=== PATIENT | female | born 1945 | race Caucasian/White ===

== ENCOUNTER → 2019-03-27 | Day surgery (SDC) | payer MEDICARE, OTHER ==
[2019-03-24 11:11] LABS: BASOPHILS % 0.6 % (0.0-1.0); EOSINOPHILS # (AUTO) 0.1 (0.0-0.4); HEMATOCRIT 36.9 % (34.2-44.1); HEMOGLOBIN 12.5 g/dL (12.0-16.0); LYMPHOCYTES # (AUTO) 1.6 (1.0-3.2); LYMPHOCYTES % 29.9 % (18.0-39.1); MEAN CORPUSCULAR HEMOGLOBIN 30.2 pg (28-32); MEAN CORPUSCULAR HGB CONC 33.9 g/dL (31-35); MEAN CORPUSCULAR VOLUME 89.1 fL (81-99); MONOCYTES # (AUTO) 0.5 (0.2-0.8); MONOCYTES % 9.9 % (4.4-11.3); NEUTROPHILS # (AUTO) 3.1 (2.1-6.9); NEUTROPHILS % 57.4 % (38.7-80.0); PLATELET COUNT 171 x10e3/uL (140-360); RED BLOOD COUNT 4.14 x10e6/uL (3.6-5.1); RED CELL DISTRIBUTION WIDTH 14.1 % (11.7-14.4)
[~2019-03-27] MED LIST: ASPIR 8181 MG PO; CALAN SR180 MG PO; CALCIUM 600 +1 EAC2 PO; CLARITIN-D 241 EACH PO; CRESTOR10 MG PO; DICYCLOMINE HCL20 MG PO; FENTANYL CITRATE/PF 100MCG/2 ML INJ ONE; LIDOCAINE HCL 2% LOCAL INJ 5 ML SDV VIAL INJ ONE; LINZESS PO; MIDAZOLAM HCL 2 MG/2 ML VIAL ONE; MULTI-VITAMIN1 EACH PO; NITRO-DUR1 EAC1 TD; OASIS TEARS OP; PROPOFOL IV EMULSION 10 MG/ML 50 ML VIAL ONE; RANITIDINE HCL300 M1 PO; ULTRAM50 MG PO; VITAMIN D31000 UNIT PEG
--- OUTSIDE RECORDS SUMMARY | 2019-03-27 11:10 | XMS REPORT | Clinical Summary ---
Author Author [facility] Organization [facility] Address Unknown Phone Unavailable Care Team Providers Care Technical Publications Manager Name Role Phone Asked, No Pcp PCP Unavailable Allergies Comments Active Allergy Reactions Severity Noted Date "my arm at the injection site got swollen, and turned black and blue " Penicillins Swelling High 07/17/2016 Medications End Date Status Medication Sig Dispensed Refills Start Date Active verapamil sustained Take 180 mg 0 release (CALAN-SR) 180 MG by mouth 6 SR tablet every morning. Take the morning of surgery Active fenofibrate (LOFIBRA) 160 Take 160 mg 0 MG tablet by mouth every morning. Take the morning of surgery, takes 1/2 tab of the 160mg Active esomeprazole (NexIUM) 40 Take 40 mg by 0 MG capsule mouth daily before breakfast. Take the morning of surgery Active traMADol (ULTRAM) 50 mg Take 50 mg by 0 tablet mouth 2 (two) times a day. Take the morning of surgery Active nitroglycerin (NITRODUR) Place 1 patch 0 0.1 mg/hr on the skin every morning. Use the morning of surgery Active CHOLECALCIFEROL, VITAMIN Take 1 tablet 0 D3, (VITAMIN D3 ORAL) by mouth daily. Stopped 9.6 Active CALCIUM ORAL Take by mouth 0 daily. Stopped 9/6 Active aspirin (ECOTRIN) 81 MG Take 81 mg by 0 enteric coated tablet mouth daily. Stopped 9/6 Active cetirizine (ZyrTEC) 10 MG Take 10 mg by 0 tablet mouth as needed for allergies. Active dicyclomine (BENTYL) 20 Take 20 mg by 0 mg tablet mouth as needed. Active fluticasone (FLONASE) 50 2 sprays into 0 mcg/actuation nasal spray each nostril as needed for rhinitis. Active CRANBERRY FRUIT EXTRACT Take by 0 (CRANBERRY EXTRACT ORAL) mouth. Stopped 9/6 Active Problems No known active problems Family History Medical History Relation Name Comments Heart disease Father Stroke Father Heart disease Mother Kidney disease Mother Lupus Mother Relation Name Status Comments Father Mother Social History Date Tobacco Use Types Packs/Day Years Used Never Smoker Smokeless Tobacco: Never Used Tobacco Cessation: Counseling Given: No Alcohol Use Drinks/Week oz/Week Comments Yes daily wine Sex Assigned at Date Recorded Not on file Industry Job Start Date Occupation Not on file Not on file Not on file Travel End Travel History Travel Start No recent travel history available. Last Filed Vital Signs Not on file Plan of Treatment Not on file Results Not on fileafter 03/26/2018 Insurance Type Payer Benefit Subscriber ID Effective Phone Address Plan / Dates Group Medicare MEDICARE MEDICARE xxxxxxxxxx 2009- [place], PART A AND Present [place] Advance Directives Patient has advance care planning documents on file. For more information, jeyson funez contact: Brian Avilez [address] [place] [address]
--- OUTSIDE RECORDS SUMMARY | 2019-03-27 11:10 | XMS REPORT | Summary of Care ---
Author Organization Unknown Address Unknown Phone Unavailable Encounter HQ Radhantr_micheal(FIN) [id number] Date(s): 03/25/14 - 03/25/14 [facility] [address] Discharge Disposition: Home Physician Attending: Ramin Macias MD Physician_Referring: Ramin Macias MD Reason for Visit AAA Problem List Condition Effective Dates Status Health Status Informant AAA - Abdominal Active aortic aneurysm(Confirmed) Chest Active pain(Confirmed) GERD - Active Gastro-esophageal reflux disease(Confirmed) HTN - Active Hypertension(Confirm ed) Hyperlipidemia(Confi Active rmed) Osteoporosis(Confirm Active ed) Allergies, Adverse Reactions, Alerts Substance Reaction Severity Status penicillin Active Medications No data available for this section Medications Administered During Your Visit No data available for this section Immunizations Vaccine Date Refusal Reason pneumococcal 23-valent vaccine1 03/07/11 1Result Comment: GIVEN LATE PT REQUESTS
--- OUTSIDE RECORDS SUMMARY | 2019-03-27 11:10 | XMS REPORT | Summary of Care ---
Author Author [facility] Organization [facility] Address Unknown Phone Unavailable Encounter HQ Negrita(DMITRIY) [id number] Date(s): 07/21/18 - 07/21/18 [facility] [address] [place] [address]- Encounter Diagnosis Pain in right knee (Final) - 09/28/18 Effusion, right knee (Final) - Synovial cyst of popliteal space [Kaye], right knee (Final) - Other chondrocalcinosis, right knee (Final) - Unilateral primary osteoarthritis, right knee (Final) - Varus deformity, not elsewhere classified, right knee (Final) - Discharge Disposition: Home or Self Care Attending Physician: Denise Fox MD Referring Physician: Denise Fox MD Vital Signs No data available for this section Problem List Condition Effective Dates Status Health Status Informant AAA - Abdominal Active aortic aneurysm(Confirmed) Bladder infection, Resolved acute(Confirmed) Bronchitis(Confirmed Resolved ) Chest Active pain(Confirmed) Constipation(Confirm Resolved ed) DJD (degenerative Resolved joint disease)(Confirmed) Gastric Resolved ulcer(Confirmed) GERD Resolved (gastroesophageal reflux disease)(Confirmed) GERD - Active Gastro-esophageal reflux disease(Confirmed) HTN Active (hypertension)(Confi rmed) HTN - Active Hypertension(Confirm ed) Hyperlipidemia(Confi Active rmed) IBS (irritable bowel Resolved syndrome)(Confirmed) OA Resolved (osteoarthritis)(Con firmed) Osteoporosis(Confirm Active ed) Skin cancer, basal Resolved cell(Confirmed) Thoracic aortic Resolved aneurysm(Confirmed) Allergies, Adverse Reactions, Alerts Substance Reaction Severity Status penicillin Active Medications No data available for this section Results No data available for this section Immunizations Given and Recorded Vaccine Date Status Refusal Reason pneumococcal 23-valent vaccine1 03/07/11 Given 1Result Comment: GIVEN LATE PT REQUESTS Procedures Procedure Date Related Diagnosis Body Site Status Appendectomy Completed Bilateral tubal ligation Completed Cholecystectomy Completed Closed reduction of dislocation of nasal Completed septum Hysterectomy Completed Laminectomy Completed Tonsillectomy and adenoidectomy Completed Social History Social History Type Response Substance Abuse Use: None. Exercise Exercise type: Walking. Employment/School 1 Alcohol Current, Type Wine. Frequency: Daily. Previous treatment: None. Alcohol use interferes with work or home: No. Drinks more than intended: No. Others hurt by drinking: No. Ready to change: No. Household alcohol concerns: No. 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
--- OUTSIDE RECORDS SUMMARY | 2019-03-27 11:10 | XMS REPORT | Continuity of Care Document ---
Author Author Catalino nicholas [facility] Interface Address Unknown Phone Unavailable Problems Problem Status Onset Date Classification Date Reported Comments Source Pain in right knee 09/28/2018 02/07/2019 [facility] M25.561 Active 07/17/2018 [facility] DX: AAA Active 07/08/2017 [facility] CHEST PAIN Active 02/09/2016 [facility] AAA Active 03/10/2015 [facility] AAA - Abdominal aortic aneurysm Active Problem 02/07/2019 [facility] [place] Chest pain Active Problem 02/07/2019 [facility], [facility] [place] GERD - Gastro-esophageal reflux disease Active Problem 02/07/2019 [facility], [facility] [place] HTN - Hypertension Active Problem 02/07/2019 [facility], [facility] [place] Hyperlipidemia Active Problem 02/07/2019 [facility], [facility] [place] Osteoporosis Active Problem 02/07/2019 [facility], [facility] [place] Bladder infection, acute Resolved Problem 02/07/2019 [facility], [facility] [place],[facility] Bronchitis Resolved Problem 02/07/2019 [facility], [facility] [place],[facility] Constipation Resolved Problem 02/07/2019 [facility], [facility] [place],[facility] DJD (<span ID="[id number]">Confirmed</span>) Resolved Problem 02/07/2019 [facility], [facility] [place],[facility] Gastric ulcer Resolved Problem 02/07/2019 [facility], [facility] [place],[facility] GERD (<span ID="[id number]">Confirmed</span>) Resolved Problem 02/07/2019 [facility], [facility] [place],[facility] HTN (<span ID="[id number]">Confirmed</span>) Active Problem 02/07/2019 [facility], [facility] [place],[facility] IBS (<span ID="[id number]">Confirmed</span>) Resolved Problem 02/07/2019 [facility], [facility] [place],[facility] OA (<span ID="[id number]">Confirmed</span>) Resolved Problem 02/07/2019 [facility] [place] Skin cancer, basal cell Resolved Problem 02/07/2019 [facility] [place] Thoracic aortic aneurysm Resolved Problem 02/07/2019 [facility] [address] [facility] Effusion, right knee 02/07/2019 [facility] Synovial cyst of popliteal space [Kaye], right knee 02/07/2019 [facility] Other chondrocalcinosis, right knee 02/07/2019 [facility] Unilateral primary osteoarthritis, right knee 02/07/2019 [facility] Varus deformity, not elsewhere classified, right knee 02/07/2019 [facility] Final: Weakness 09/17/2016 [facility] Final: Unspecified abnormalities of gait and mobility 09/17/2016 [facility] ABDOM AORTIC ANEURYSM Active [facility] LUMBAGO Active [facility] LEFT HIP/KNEE Active [facility] JT STIFFNESS NEC-MULT JT Active [facility] DIFFICULTY IN WALKING Active [facility] MUSCLE WEAKNESS-GENERAL Active [facility] CHEST PAIN, UNSPECIFIED Active [facility] LT ANKLE/FOOT Active [facility] ABDOMINAL AORTIC ANEURYSM, WITHOUT RUPTU Active [facility] LT ANKLE PAIN Active [facility] PAIN IN LEFT ANKLE AND JOINTS OF LEFT FO Active [facility] WEAKNESS Active [facility] UNSPECIFIED ABNORMALITIES OF GAIT AND MO Active [facility] PAIN IN RIGHT KNEE Active [facility] Medications Medication Details Route Status Patient Instructions Ordering Provider Order Date Source Omnipaque 300 100 mL, Route: IV, Drug Form: SOLN, ONCE, Start date: 07/12/17 8:13:00 CDT, Stop date: 07/12/17 8:13:00 CDTNotes: (Same as:Omnipaque 300). WASTE: F/P - Black; E - [facility] Inactive 07/12/2017 [facility] Lipitor 5 mg, 0.5 tab, Route: PO, Drug form: TAB, Bedtime, Dosing Weight 66.955, kg, Start date: 02/10/16 21:00:00 CDT, Duration: 30 day, Stop date: 03/10/16 21:00:00 CDTNotes: (Same As: Lipitor) No Longer Active 02/11/2016 [facility] Protonix 40 mg, 1 tab, Route: PO, Drug form: ECTAB, Before Dinner, Dosing Weight 66.955, kg, Start date: 02/10/16 16:30:00 CDT, Duration: 30 day, Stop date: 03/10/16 16:30:00 CDTNotes: Tablet should not be chewed or crushed. (Same as: Protonix) No Longer Active 02/10/2016 [facility] Fenofibrate 72.5 mg, 0.5 tab, Route: PO, Drug form: TAB, Daily, Dosing Weight 66.955, kg, Start date: 02/10/16 11:30:00 CDT, Duration: 30 day, Stop date: 03/11/16 9:00:00 CDTNotes: (Same as: Tricor) No Longer Active 02/10/2016 [facility] Fenofibrate 160 MG Oral Tablet 1/2 tablet, PO, Daily, 0 Refill(s) On Hold 02/10/2016 [facility] Lipitor 5 mg, PO, Bedtime, 0 Refill(s) Inactive 02/10/2016 [facility] Dicyclomine 20 mg, PO, TID, PRN Pain Score 1-5, 0 Refill(s) On Hold 02/10/2016 [facility] Verapamil 180 mg, PO, Daily, 0 Refill(s) On Hold 02/10/2016 [facility] Aspirin 325 MG Enteric Coated Tablet 325 mg, 1 tab, Route: PO, Drug form: ECTAB, Daily, Dosing Weight 66.955, kg, Start date: 02/10/16 9:00:00 CDT, Duration: 30 day, Stop date: 03/10/16 9:00:00 CDTNotes: (Do Not Crush) Do not crush or chew. No Longer Active 02/10/2016 [facility] Verapamil 180 mg, 1 tab, Route: PO, Drug form: ERTAB, Daily, Dosing Weight 66.955, kg, Start date: 02/10/16 9:00:00 CDT, Duration: 30 day, Stop date: 03/10/16 9:00:00 CDTNotes: Do not crush or chew. (Same As: Calan SR, Isoptin SR) "Avoid grapefruit and grapefruit juice" No Longer Active 02/10/2016 [facility] Bystolic 5 mg, 2 tab, Route: PO, Drug form: TAB, Daily, Dosing Weight 66.955, kg, Start date: 02/10/16 9:00:00 CDT, Duration: 30 day, Stop date: 03/10/16 9:00:00 CDTNotes: Same as: Bystolic Inactive 02/10/2016 [facility] Levsin 0.125 mg, 1 tab, Route: PO, Drug form: TAB, BID, Dosing Weight 66.955, kg, Start date: 02/10/16 9:00:00 CDT, Duration: 30 day, Stop date: 03/10/16 17:00:00 CDT Inactive 02/10/2016 [facility] Flonase 0.05 mg/inh nasal spray 1 spray, Route: NASAL, Drug Form: SPRY, Dosing Weight 66.955, kg, BID, Start date: 02/10/16 9:00:00 CDT, Duration: 30 day, Stop date: 03/10/16 21:00:00 CDTNotes: (Same as: Flonase) No Longer Active 02/10/2016 [facility] Celebrex 200 mg, 1 cap, Route: PO, Drug form: CAP, Daily, Dosing Weight 66.955, kg, Start date: 02/10/16 9:00:00 CDT, Duration: 30 day, Stop date: 03/10/16 9:00:00 CDTNotes: NSAID. Please check indication. Not for seizure. (Same As: CeleBREX) Inactive 02/10/2016 [facility] tramadol hydrochloride 50 MG Oral Tablet 50 mg, 1 tab, Route: PO, Drug form: TAB, TID, Dosing Weight 66.955, kg, PRN Pain Score 4-6, Start date: 02/10/16 7:41:00 CDT, Duration: 30 day, Stop date: 03/11/16 7:40:00 CDTNotes: Not to exceed 400mg/day. (Same As: Ultram) No Longer Active 02/10/2016 [facility] Nitroglycerin 0.4 MG Sublingual Tablet 0.4 mg, 1 tab, Route: SL, Drug form: TAB, Q5Min, Dosing Weight 66.955, kg, PRN Chest Pain, Start date: 02/10/16 7:41:00 CDT, Duration: 30 day, Stop date: 03/11/16 7:40:00 CDTNotes: (Same as:Nitroquick, Nitrostat) "Do Not Crush" Sublingual tablet No Longer Active 02/10/2016 [facility] Robaxin 500 mg, 1 tab, Route: PO, Drug form: TAB, Q6H, Dosing Weight 66.955, kg, PRN Spasm, Start date: 02/10/16 7:41:00 CDT, Duration: 30 day, Stop date: 03/11/16 7:40:00 CDTNotes: (Same as:Robaxin) No Longer Active 02/10/2016 [facility] Acetaminophen 650 mg, 2 tab, Route: PO, Drug form: TAB, Q4H, Dosing Weight 63.636, kg, PRN Pain 1-3/Temp > 100.4 F, Start date: 02/09/16 23:40:00 CDT, Duration: 30 day, Stop date: 03/10/16 23:39:00 CDTNotes: Do not exceed 4 gm/day. (Same as: Tylenol) No Longer Active 02/10/2016 [facility] Ondansetron 4 mg, 2 mL, Route: IVP, Drug form: INJ, Q6H, Dosing Weight 63.636, kg, PRN Nausea & Vomiting, Start date: 02/09/16 23:40:00 CDT, Duration: 30 day, Stop date: 03/10/16 23:39:00 CDTNotes: (Same as: Nonafrtri) MEDICATION WASTE Product Size: 4 mg Product Wasted: ___ mg No Longer Active 02/10/2016 [facility] Docusate 100 mg, 1 cap, Route: PO, Drug form: CAP, BID, Dosing Weight 63.636, kg, PRN Constipation, Start date: 02/09/16 23:40:00 CDT, Duration: 30 day, Stop date: 03/10/16 23:39:00 CDTNotes: (Same as: Colace) (Do Not Crush) No Longer Active 02/10/2016 [facility] Morphine 2 mg, 1 mL, Route: IVP, Drug form: INJ, Q4H, Dosing Weight 63.636, kg, PRN Pain Score 7-10, Start date: 02/09/16 23:40:00 CDT, Duration: 30 day, Stop date: 03/10/16 23:39:00 CDTNotes: (Same as:MORPhine Sulfate) No Longer Active 02/10/2016 [facility] Reglan 5 mg, 1 mL, Route: IVP, Drug form: INJ, ONCE, Dosing Weight 63.636, kg, Priority: STAT, Start date: 02/09/16 21:24:00 CDT, Stop date: 02/09/16 21:24:00 CDTNotes: (Same as: Reglan) Inactive 02/10/2016 [facility] Zofran 4 mg, Route: IVP, Drug form: INJ, ONCE, Dosing Weight 63.636, kg, Priority: STAT, Start date: 02/09/16 19:54:00 CDT, Stop date: 02/09/16 19:54:00 CDT Inactive 02/10/2016 [facility] Aspirin 81 MG Chewable Tablet 324 mg, 4 tab, Route: CHEW, Drug form: CHEWTAB, ONCE, Dosing Weight 63.636, kg, Priority: STAT, Start date: 02/09/16 19:12:00 CDT, Stop date: 02/09/16 19:12:00 CDTNotes: Take with food. Inactive 02/10/2016 [facility] Saline Flush 0.9% 10 mL, Route: IVP, Drug Form: INJ, Dosing Weight 63.636, kg, PRN, PRN Line Flush, Start date: 02/09/16 18:33:00 CDT, Duration: 30 day, Stop date: 03/10/16 18:32:00 CDTNotes: Same as: BD Posiflush Sterile No Longer Active 02/09/2016 [facility] Allergies, Adverse Reactions, Alerts Substance Category Reaction Severity Reaction type Status Date Reported Comments Source penicillin Assertion Drug allergy Active [facility] Immunizations Immunization Date Given Site Status Last Updated Comments Source pneumococcal 23-valent vaccine<sup>1</sup> 03/07/2011 Right deltoid completed [place] Result Comment: GIVEN LATE PT REQUESTS [facility], [facility], [facility] [place] Results Order Name Results Value Reference Range Date Interpretation Comments Source Knee wo contrast CT Knee wo contrast CT CT RIGHT KNEE WITHOUT CONTRAST WITH SAGITTAL AND CORONAL REFORMATTED IMAGES HISTORY: M25.561 Pain in right knee; 72-year-old female reports right knee pain and bruising after right knee injury during fall 2 weeks ago TECHNIQUE: IV CONTRAST: No. GI CONTRAST: No. CT imaging performed at this location utilizes radiation dose optimization techniques which include one or more of the following: -Automated exposure control -Adjustment of the mA and/or kV according to patient size -Use of iterative reconstruction technique CT Radiation Dose DLP 342 mGy-cm COMPARISON: None available. FINDINGS: No fracture, dislocation, subluxation, or aggressive osseous lesion. Moderate to severe lateral compartment degenerative arthrosis demonstrating near [id number] joint space narrowing with degenerative subchondral sclerosis and moderate osteophytosis. There is mild genu valgus deformity. No significant medial compartment joint space narrowing. Mild lateral patellofemoral arthritic joint space narrowing. Mild medial and patellofemoral compartment degenerative osteophytosis. Meniscal chondrocalcinosis is noted. Small knee joint effusion is present. A Kaye's cyst is present measuring 1.8 x 2.9 x 4.3 cm. No soft tissue hematoma, fluid collection, or mass. IMPRESSION: 1. No fracture or acute abnormality. 2. Moderate to severe lateral compartment degenerative arthrosis with mild genu valgus. 3. Mild/moderate tricompartmental degenerative osteophytosis, meniscal chondrocalcinosis, small joint effusion, and Kaye's cyst. SL: [id number] 07/21/2018 - - Read by: Chang Banks MD Dictated Date/time: 07/21/18 10:03 Electronically Signed by: Chang Banks MD 07/21/18 10:09 FINAL REPORT [facility] CHEM PANEL eGFR 74 mL/min/1.73m2 07/12/2017 Result Comment: The eGFR is calculated using the CKD-EPI formula. In most young, healthy individuals the eGFR will be >90 mL/min/1.73m2. The eGFR declines with age. An eGFR of 60-89 may be normal in some populations, particularly the elderly, for whom the CKD-EPI formula has not been extensively validated. Use of the eGFR is not recommended in the following populations: Individuals with unstable creatinine concentrations, including patients and those with serious co-morbid conditions. Patients with extremes in muscle mass or diet. The data above are obtained from the National Kidney Disease Education Program (NKDEP) which additionally recommends that when the eGFR is used in patients with extremes of body mass index for purposes of drug dosing, the eGFR should be multiplied by the estimated BMI. [facility] CHEM PANEL POC Creatinine 0.8 mg/dL 0.5 - 1.4 07/12/2017 [facility] Abdomen w IV contrast CT Abdomen w IV contrast CT Abdomen w IV contrast CT TECHNIQUE: Contiguous transaxial images of the abdomen were performed from the lung bases to the pelvic brim with IV contrast. CLINICAL HX: ct dlp 583.5 mGycm - I71.4 Abdominal aortic aneurysm, without rupture; COMPARISON: None CT ABDOMEN: Lower Chest: The lung bases are clear. GI Tract: Bowel gas pattern is unremarkable. No evidence to suggest small or large bowel obstruction. There is no evidence for free fluid or free air in the abdomen. Tract and retroperitoneum: Small interpolar cyst, left kidney, unchanged. The kidneys otherwise demonstrate normal morphology and symmetric excretion. Lymph Nodes: No significant retroperitoneal lymphadenopathy is noted. Abdominal viscera: The spleen, pancreas and both adrenals demonstrate normal morphology. Fatty infiltration of liver. Status post cholecystectomy. Mild intrahepatic and extrahepatic bile duct dilation, unchanged. Vasculature: Minimal atherosclerotic disease infrarenal abdominal aorta. No aneurysm. Bone and Soft tissues: Extensive spondylosis and degenerative disc disease is noted in the lumbar spine. No significant bony abnormality is noted. IMPRESSION: No acute abnormality. No significant interval change from previous study of 03/25/2014. SL: [id number] 07/12/2017 - - Read by: Froilan Villatoro MD Dictated Date/time: 07/12/17 16:17 Electronically Signed by: Froilan Villatoro MD 07/12/17 16:26 FINAL REPORT [facility] Chest w contrast CT Chest w contrast CT Chest w contrast CT CLINICAL HX: ct dlp 224.5 mGycm; 100 cc omni IV \\T\\ 25 cc omni PO - I71.4 Abdominal aortic aneurysm, without rupture. COMPARISON: 03/16/2015 TECHNIQUE: Contiguous transaxial images of the chest were performed with IV contrast. Reformats are available in sagittal and coronal projections. CT CHEST: SUPPORT DEVICES: none LOWER NECK: Low density focus in right lobe of thyroid gland is unchanged.. LUNGS AND AIRWAYS: The lungs and pleural spaces are clear. The trachea and the proximal bronchi are patent. CARDIOVASCULAR: The cardiac size is normal. Aneurysm of the ascending portion of the aorta is stable from previous study. Maximum caliber is 4.6 cm, unchanged from previous CT of 03/16/2015. No evidence for dissection. LYMPH NODES: No significant mediastinal or hilar lymphadenopathy. SOFT TISSUE AND BONES: . No significant bony abnormality is noted. ESOPHAGUS AND UPPER ABDOMEN: The esophagus demonstrates normal morphology. Limited images of the upper abdomen reveal fatty infiltration of liver. IMPRESSION: Stable size and appearance of ascending thoracic aortic aneurysm. No dissection. No significant change in low-density nodule, right lobe of thyroid gland. SL: [id number] 07/12/2017 - - Read by: Froilan Villatoro MD Dictated Date/time: 07/12/17 16:07 Electronically Signed by: Froilan Villatoro MD 07/12/17 16:17 FINAL REPORT [facility] Foot wo contrast MRI Foot wo contrast MRI MRI LEFT FOREFOOT WITHOUT CONTRAST HISTORY: Injury of left foot, 71-year-old female reports dorsal left foot pain for approximately 2 months, no specific injury, painful range of motion COMPARISON: None available. FINDINGS: A skin marker was placed dorsal to the second and third tarsometatarsal joints site of patient's symptoms. There is mild focal bone marrow edema in the proximal metaphysis of the third metatarsal just distal to the tarsometatarsal joint without associated fracture line compatible with osseous stress reaction (long axis series 901 image 14). There is also mild reactive arthropathic degenerative marrow edema within the middle and lateral cuneiforms at the second and third tarsometatarsal joints with trace associated dorsal degenerative spurring. Small degenerative subchondral cyst noted in the dorsal base of the third metatarsal. No other abnormal marrow signal is seen within the forefoot. No soft tissue mass or fluid collection. No tendon abnormality is seen. IMPRESSION: 1. Focal marrow edema in the proximal shaft of the third metatarsal without fracture line compatible with osseous stress reaction. 2. Mild dorsal degenerative spurring and subcortical cystic change at the second and third tarsometatarsal joints with mild associated arthropathic marrow edema. SL: [id number] 09/29/2016 - - Read by: Chang Banks MD Dictated Date/time: 10/01/16 08:01 Electronically Signed by: Chang Banks MD 10/01/16 08:10 FINAL REPORT [facility] [place] CARDIAC ENZYMES CK MB 0.6 ng/mL 0.5 - 3.6 02/10/2016 [facility] CARDIAC ENZYMES Troponin-I null 0.00 - 0.40 02/10/2016 [facility] CARDIAC ENZYMES Total CK 48 unit/L 12 - 191 02/10/2016 [facility] CARDIAC ENZYMES CK MB Index 1.2 0.0 - 2.5 02/10/2016 [facility] CARDIAC ENZYMES CK MB 0.6 ng/mL 0.5 - 3.6 02/10/2016 [facility] CARDIAC ENZYMES Troponin-I null 0.00 - 0.40 02/10/2016 [facility] CARDIAC ENZYMES Total CK 51 unit/L 12 - 191 02/10/2016 [facility] CARDIAC ENZYMES CK MB Index 1.2 0.0 - 2.5 02/10/2016 [facility] CHEM PANEL eGFR 76 mL/min/1.73m2 02/10/2016 Result Comment: The eGFR is calculated using the CKD-EPI formula. In most young, healthy individuals the eGFR will be >90 mL/min/1.73m2. The eGFR declines with age. An eGFR of 60-89 may be normal in some populations, particularly the elderly, for whom the CKD-EPI formula has not been extensively validated. Use of the eGFR is not recommended in the following populations: Individuals with unstable creatinine concentrations, including patients and those with serious co-morbid conditions. Patients with extremes in muscle mass or diet. The data above are obtained from the National Kidney Disease Education Program (NKDEP) which additionally recommends that when the eGFR is used in patients with extremes of body mass index for purposes of drug dosing, the eGFR should be multiplied by the estimated BMI. [facility] CHEM PANEL CO2 28 meq/L 24 - 32 02/10/2016 [facility] CHEM PANEL AGAP 12.0 meq/L 10.0 - 20.0 02/10/2016 [facility] CHEM PANEL Calcium Lvl 9.0 mg/dL 8.5 - 10.5 02/10/2016 [facility] CHEM PANEL Chloride Lvl 102 meq/L 95 - 109 02/10/2016 [facility] CHEM PANEL Potassium Lvl 4.0 meq/L 3.5 - 5.1 02/10/2016 [facility] CHEM PANEL Glucose Lvl 89 mg/dL 70 - 99 02/10/2016 [facility] CHEM PANEL Creatinine Lvl 0.79 mg/dL 0.50 - 1.40 02/10/2016 [facility] CHEM PANEL BUN 9 mg/dL 7 - 22 02/10/2016 [facility] CHEM PANEL Sodium Lvl 138 meq/L 135 - 145 02/10/2016 [facility] HEMATOLOGY Platelet 207 K/CMM 133 - 450 02/10/2016 [facility] HEMATOLOGY MPV 8.0 fL 7.4 - 10.4 02/10/2016 [facility] HEMATOLOGY RDW 13.8 % 11.5 - 14.5 02/10/2016 [facility] HEMATOLOGY Hgb 12.5 g/dL 12.0 - 16.0 02/10/2016 [facility] HEMATOLOGY Hct 37.6 % 36.0 - 48.0 02/10/2016 [facility] HEMATOLOGY RBC 4.37 M/CMM 4.20 - 5.40 02/10/2016 [facility] HEMATOLOGY MCV 86.1 fL 80.0 - 98.0 02/10/2016 [facility] HEMATOLOGY MCH 28.6 pg 27.0 - 31.0 02/10/2016 [facility] HEMATOLOGY MCHC 33.2 g/dL 32.0 - 36.0 02/10/2016 [facility] HEMATOLOGY WBC 4.9 K/CMM 3.7 - 10.4 02/10/2016 [facility] HEMATOLOGY Lymphocytes # 1.1 K/CMM 1.0 - 5.5 02/10/2016 [facility] HEMATOLOGY Monocytes # 0.5 K/CMM 0.0 - 0.8 02/10/2016 [facility] HEMATOLOGY Basophils 0.8 % 0.0 - 1.0 02/10/2016 [facility] HEMATOLOGY Segs-Bands # 3.2 K/CMM 1.5 - 8.1 02/10/2016 [facility] HEMATOLOGY Lymphocytes 23.3 % 20.0 - 40.0 02/10/2016 [facility] HEMATOLOGY Monocytes 9.5 % 2.0 - 12.0 02/10/2016 [facility] HEMATOLOGY Eosinophils 0.5 % 0.0 - 4.0 02/10/2016 [facility] HEMATOLOGY Segs 65.9 % 45.0 - 75.0 02/10/2016 [facility] CARDIAC ENZYMES Troponin-I null 0.00 - 0.40 02/10/2016 [facility] CARDIAC ENZYMES CK MB 1.2 ng/mL 0.5 - 3.6 02/10/2016 [facility] CARDIAC ENZYMES Total CK 57 unit/L 12 - 191 02/10/2016 [facility] CARDIAC ENZYMES CK MB Index 2.1 0.0 - 2.5 02/10/2016 [facility] URINE AND STOOL UA Urobilinogen <=1.0 mg/dL 0.1 - 1.0 02/10/2016 [facility] URINE AND STOOL UA Color Ltyellow 02/10/2016 [facility] URINE AND STOOL UA Leuk Est Large *ABN* (02/09/16 9:36 PM) Negative 02/10/2016 [facility] URINE AND STOOL UA Sq Epi Occasional /LPF Few /LPF 02/10/2016 [facility] URINE AND STOOL UA RBC 2 /HPF 0 - 2 02/10/2016 [facility] URINE AND STOOL UA Bacteria Occasional /HPF None Seen /HPF 02/10/2016 [facility] URINE AND STOOL UA WBC 5 /HPF 0 - 5 02/10/2016 [facility] URINE AND STOOL UA Turbidity Clear (02/09/16 9:36 PM) Clear 02/10/2016 [facility] URINE AND STOOL UA Nitrite Negative (02/09/16 9:36 PM) Negative 02/10/2016 [facility] URINE AND STOOL UA Spec Grav 1.005 <=1.030 02/10/2016 [facility] URINE AND STOOL UA pH 6.0 5.0 - 8.0 02/10/2016 [facility] URINE AND STOOL UA Glucose Negative mg/dL Negative mg/dL 02/10/2016 [facility] URINE AND STOOL UA Blood Negative (02/09/16 9:36 PM) Negative 02/10/2016 [facility] URINE AND STOOL UA Bili Negative *NA* (02/09/16 9:36 PM) Negative 02/10/2016 [facility] URINE AND STOOL UA Protein Negative mg/dL Negative mg/dL 02/10/2016 [facility] URINE AND STOOL UA Ketones Negative mg/dL Negative mg/dL 02/10/2016 [facility] CARDIAC ENZYMES BNP 51 pg/mL <=100 pg/mL 02/09/2016 [facility] CHEM PANEL eGFR 62 mL/min/1.73m2 02/09/2016 Result Comment: The eGFR is calculated using the CKD-EPI formula. In most young, healthy individuals the eGFR will be >90 mL/min/1.73m2. The eGFR declines with age. An eGFR of 60-89 may be normal in some populations, particularly the elderly, for whom the CKD-EPI formula has not been extensively validated. Use of the eGFR is not recommended in the following populations: Individuals with unstable creatinine concentrations, including patients and those with serious co-morbid conditions. Patients with extremes in muscle mass or diet. The data above are obtained from the National Kidney Disease Education Program (NKDEP) which additionally recommends that when the eGFR is used in patients with extremes of body mass index for purposes of drug dosing, the eGFR should be multiplied by the estimated BMI. [facility] CHEM PANEL BUN 13 mg/dL 7 - 22 02/09/2016 [facility] CHEM PANEL Sodium Lvl 129 meq/L 135 - 145 02/09/2016 [facility] CHEM PANEL Potassium Lvl 3.4 meq/L 3.5 - 5.1 02/09/2016 [facility] CHEM PANEL Glucose Lvl 136 mg/dL 70 - 99 02/09/2016 [facility] CHEM PANEL AST 15 unit/L 0 - 37 02/09/2016 [facility] CHEM PANEL Bili Total 0.6 mg/dL 0.2 - 1.3 02/09/2016 [facility] CHEM PANEL B/C Ratio 14 6 - 25 02/09/2016 [facility] CHEM PANEL Alk Phos 33 unit/L 39 - 136 02/09/2016 [facility] CHEM PANEL AGAP 13.4 meq/L 10.0 - 20.0 02/09/2016 [facility] CHEM PANEL Globulin 3.0 g/dL 2.0 - 4.0 02/09/2016 [facility]M PANEL A/G Ratio 1.3 0.7 - 1.6 02/09/2016 [facility] CHEM PANEL Calcium Lvl 9.0 mg/dL 8.5 - 10.5 02/09/2016 [facility] CHEM PANEL Total Protein 7.0 g/dL 6.4 - 8.4 02/09/2016 [facility] CHEM PANEL Albumin Lvl 4.0 g/dL 3.5 - 5.0 02/09/2016 [facility] CHEM PANEL ALT 23 unit/L 0 - 65 02/09/2016 [facility] CHEM PANEL Creatinine Lvl 0.93 mg/dL 0.50 - 1.40 02/09/2016 [facility] CHEM PANEL CO2 26 meq/L 24 - 32 02/09/2016 [facility] CHEM PANEL Chloride Lvl 93 meq/L 95 - 109 02/09/2016 [facility] HEMATOLOGY Hct 38.8 % 36.0 - 48.0 02/09/2016 [facility] HEMATOLOGY MCV 86.5 fL 80.0 - 98.0 02/09/2016 [facility] HEMATOLOGY MCH 29.1 pg 27.0 - 31.0 02/09/2016 [facility] HEMATOLOGY Hgb 13.1 g/dL 12.0 - 16.0 02/09/2016 [facility] HEMATOLOGY RBC 4.49 M/CMM 4.20 - 5.40 02/09/2016 [facility] HEMATOLOGY WBC 7.7 K/CMM 3.7 - 10.4 02/09/2016 [facility] HEMATOLOGY Platelet 216 K/CMM 133 - 450 02/09/2016 [facility] HEMATOLOGY RDW 13.7 % 11.5 - 14.5 02/09/2016 [facility] HEMATOLOGY MPV 8.1 fL 7.4 - 10.4 02/09/2016 [facility] MCHC 33.6 g/dL 32.0 - 36.0 02/09/2016 [facility] HEMATOLOGY PTT 26.2 s 22.9 - 35.8 02/09/2016 [facility] HEMATOLOGY INR 0.99 0.85 - 1.17 02/09/2016 [facility] HEMATOLOGY PT 13.4 s 12.0 - 14.7 02/09/2016 [facility] HEMATOLOGY Basophils 0.7 % 0.0 - 1.0 02/09/2016 [facility] HEMATOLOGY Lymphocytes # 2.0 K/CMM 1.0 - 5.5 02/09/2016 [facility] HEMATOLOGY Segs-Bands # 5.0 K/CMM 1.5 - 8.1 02/09/2016 [facility] HEMATOLOGY Eosinophils 0.9 % 0.0 - 4.0 02/09/2016 [facility] HEMATOLOGY Segs 64.8 % 45.0 - 75.0 02/09/2016 [facility] HEMATOLOGY Monocytes 7.5 % 2.0 - 12.0 02/09/2016 [facility] HEMATOLOGY Lymphocytes 26.1 % 20.0 - 40.0 02/09/2016 [facility] HEMATOLOGY Basophils # 0.1 K/CMM 0.0 - 0.2 02/09/2016 [facility] HEMATOLOGY Eosinophils # 0.1 K/CMM 0.0 - 0.5 02/09/2016 [facility] HEMATOLOGY Monocytes # 0.6 K/CMM 0.0 - 0.8 02/09/2016 [facility] Chest 1view DX Chest 1view DX Study: Chest 1view DX 02/09/2016 6:33 PM CDT Patient Name: MONET STEIN MR: [id number] : 1945; Age: 70 years y/o Female Ordering Physician: Rfafi Zamora Clinical Indication: Chest pain Comparison: 03/06/2011. Lungs: The lungs are clear of consolidation, pleural effusion, and pneumothorax. Elevated left hemidiaphragm. Incidental azygos fissure medially in the right lung apex. The trachea is midline. Heart and mediastinum: Heart size remains at the upper limits of normal to mildly enlarged. Prominence of both wilda is likely vascular in nature suggesting pulmonary arterial hypertension.. Lines: None. Other: None. Osseous structures: No fracture, dislocation, or suspicious focal osseous lesion. IMPRESSION: 1. No acute abnormality as above discussed. SL: [id number] 02/09/2016 - - Read by: Rahul Corral MD Dictated Date/time: 02/09/16 19:47 Electronically Signed by: Rahul Corral MD 02/09/16 19:48 FINAL REPORT [facility] Chest/Abdomen w IV contrast CT Chest/Abdomen w IV contrast CT I. CT SCAN OF THE CHEST WITH CONTRAST. II. CT SCAN OF THE ABDOMEN WITH CONTRAST. HISTORY: Ascending thoracic aortic aneurysm. Comparison is made to 04/14/2013. A study of 04/11/2012 was also reviewed. TECHNIQUE: [address] images were obtained from the thoracic inlet to the upper pelvis following the intravenous administration of nonionic iodinated contrast. Sagittal and coronal reconstructions were provided. Oral contrast was not provided. FINDINGS (Vascular): 1. Stable ascending thoracic aortic aneurysm. There has been no change in 4.6 cm in maximal diameter ascending thoracic aortic aneurysm. 2. There is no evidence of abdominal aortic aneurysm. There is no dissection. 3. The aortic measurements (maximum diameter) are as follows: Aortic root at the level of the aortic valve: 3.1 cm Ascending thoracic aorta: 4.6 cm Proximal aortic arch: 3.7 cm Mid aortic arch: 2.6 cm Distal aortic arch: 2.3 cm Proximal descending thoracic aorta: 2.1 cm Mid descending thoracic aorta: 2 cm The distal descending thoracic aorta: 2.0 cm Upper abdominal aorta: 1.8 cm Abdominal aorta the level of the renal arteries: 1.5 cm Distal abdominal aorta just above the bifurcation: 1.3 cm. 4. Moderate atherosclerotic calcifications involving the abdominal aorta. No significant atherosclerotic calcifications are seen involving the thoracic aorta. FINDINGS (Non Vascular) - Chest: 1. No evidence of an active or acute process within the chest. There are no pulmonary infiltrates or pleural effusions. 2. Tiny (2 mm) stable pulmonary nodule in the posterior aspect of the left lower lobe (image 37 of series 4). This probably represents a tiny noncalcified granuloma. 3. No other pulmonary nodules or masses are seen. There is no hilar or mediastinal adenopathy. 4. Note is made of an azygous lobe, a normal variant. 5. The heart is normal in size. There is no pericardial effusion. 6. The regional skeleton is unremarkable. FINDINGS (Non Vascular) - Abdomen: 1. Status post cholecystectomy. There is mild dilatation the common bile duct which measures approximately 8 mm in diameter which is unchanged. There is minimal prominence of the central intrahepatic ducts. These changes are stable and are felt to be related to post cholecystectomy change. 2. No suspicious mass or adenopathy is seen within the abdomen or pelvis. 3. There is no ascites or other fluid collection. 4. The liver, spleen, pancreas, and adrenal glands are normal in appearance. 5. The kidneys show good, symmetrical excretion without hydronephrosis. There is a tiny (1.5 mm) left midpolar renal cyst. 6. The gastrointestinal structures are unremarkable. Evaluation the gastrointestinal structures is limited due to lack of oral contrast. 7. There are severe degenerative change involving the lumbar spine. There is extensive degenerative disc disease at all levels from L2 to S1. There is also scattered degenerative facet disease, greatest on the right at L4-L5. Is also mild scoliosis. SL: 13 Solitario Alejo M.D. 03/25/2014 - - Read by: Solitario Alejo MD Dictated Date/time: 03/25/14 11:06 Electronically Signed by: Solitario Alejo MD 03/25/14 11:24 FINAL REPORT [facility] Vital Signs Vital Sign Value Date Comments Source Heart Rate 59 02/11/2016 [facility] Temperature Oral (F) 98.4 F 02/11/2016 [facility] Respitory Rate 18 02/11/2016 [facility] Systolic (mm Hg) 133 02/11/2016 [facility] Diastolic (mm Hg) 73 02/11/2016 [facility] Systolic (mm Hg) 146 02/11/2016 [facility] Diastolic (mm Hg) 84 02/11/2016 [facility] Respitory Rate 18 02/11/2016 [facility] Heart Rate 61 02/11/2016 [facility] Temperature Oral (F) 98.2 F 02/11/2016 [facility] Respitory Rate 16 02/11/2016 [facility] Systolic (mm Hg) 109 02/11/2016 [facility] Diastolic (mm Hg) 65 02/11/2016 [facility] Heart Rate 54 02/11/2016 [facility] Temperature Oral (F) 98.0 F 02/11/2016 [facility] Weight 66.955 02/10/2016 [facility] BMI Calculated 24.56 02/10/2016 [facility] Height 165.1 cm 02/10/2016 [facility] Height 165.1 cm 02/09/2016 [facility] BMI Calculated 23.35 02/09/2016 [facility] Weight 63.636 02/09/2016 [facility] Encounters Location Location Details Encounter Type Encounter Number Reason For Visit Attending Provider ADM Date DC Date Status Source [facility] [id number] [facility] [place] 03/25/2014 03/26/2014 [facility] Outpatient [id number] [facility] [place] 03/16/2015 03/17/2015 [facility] OP Therapy Patients [id number] Denise Fitzgerald-Loyal 07/26/2015 07/27/2015 [facility] OP Therapy Patients [id number] Denise Fitzgerald-Loyal 07/28/2015 08/27/2015 [facility] Inpatient [id number] Carine Boccardo 02/09/2016 02/12/2016 [facility] OP Therapy Patients [id number] Denise Fitzgerald-Loyal 08/16/2016 09/15/2016 [facility] OP Therapy Patients [id number] Denise Fitzgerald-Loyal 09/18/2016 10/18/2016 [facility] [id number] Denise Fitzgerald-Loyal 09/29/2016 09/30/2016 [facility] Outpatient [id number] Ramin Tapiar 07/12/2017 07/13/2017 [facility] Outpatient [id number] Deniseyousuf Fox 07/21/2018 07/22/2018 [facility] Procedures Procedure Code Date Perfomer Comments Source Appendectomy [id number] [facility] Bilateral tubal ligation [id number] [facility] Cholecystectomy [id number] [facility] Closed reduction of dislocation of nasal septum [id number] [facility] Hysterectomy [id number] [facility] Laminectomy [id number] [facility] Tonsillectomy and adenoidectomy [id number] [facility] Appendectomy [id number] [facility] [place] Bilateral tubal ligation [id number] [facility] [place] Cholecystectomy [id number] [facility] [place] Closed reduction of dislocation of nasal septum [id number] [facility] [place] Hysterectomy [id number] [facility] [place] Laminectomy [id number] [facility] [place] Tonsillectomy and adenoidectomy [id number] [facility] [place] Appendectomy [id number] [facility] [place] Bilateral tubal ligation [id number] [facility] Cholecystectomy [id number] [facility] Closed reduction of dislocation of nasal septum [id number] [facility] Hysterectomy [id number] [facility] Laminectomy [id number] [facility] Tonsillectomy and adenoidectomy [id number] [facility]
--- OUTSIDE RECORDS SUMMARY | 2019-03-27 11:10 | XMS REPORT | Clinical Summary ---
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 Active calcium carbonate-vitamin Take 1 tablet 0 D3 (CALCIUM-VITAMIN D) by mouth 2 500 mg(1,250mg) -200 unit (two) times per tablet daily with breakfast and dinner. Active loratadine (CLARITIN) 10 Take 10 mg by 0 mg tablet mouth daily. Active cetirizine (ZYRTEC) 10 MG Take 10 mg by 0 tablet mouth daily. Active cranberry 500 mg Cap Take by 0 mouth. Active dicyclomine (BENTYL) 20 Take 20 mg by 0 mg tablet mouth every 6 (six) hours. Active fenofibrate Take 160 mg 0 (TRIGLIDE,LOFIBRA) 160 MG by mouth tablet daily. Active fluticasone (FLONASE) 50 1 spray by 0 mcg/actuation nasal spray Nasal route daily. Active LINACLOTIDE (LINZESS Take by 0 ORAL) mouth. Active esomeprazole (NEXIUM) 40 Take 40 mg by 0 MG capsule mouth daily. Active nitroglycerin (NITRODUR) Place 1 patch 0 0.1 mg/hr patch onto the skin daily. Active traMADol (ULTRAM) 50 mg Take 50 mg by 0 tablet mouth every 6 (six) hours as needed for Pain. Active verapamil (CALAN-SR) 180 Take 180 mg 0 MG ER tablet by mouth nightly. Active cholecalciferol, vitamin Take by 0 D3, 2,000 unit Cap mouth. Active Problems Not on file Social History Date Tobacco Use Types Packs/Day Years Used Never Smoker Alcohol Use Drinks/Week oz/Week Comments Yes 7 Cans of 4.2 beer Sex Assigned at Date Recorded Not on file Industry Job Start Date Occupation Not on file Not on file Not on file Travel End Travel History Travel Start No recent travel history available. Last Filed Vital Signs Not on file Plan of Treatment Not on file Implants Device Identifier Shelf Expiration Date Model / Serial / Lot Implanted Type Area Manufactur er 06/25/2020 [id number] / [id number] / Iol Tecnis [id number] 24.0 [facility] Right: Eye ADV MED [id number] - [id number] ogy OPTICS Implanted: Qty: 1 on 02/27/2017 by Garcia Greenwood MD Results Not on fileafter 03/26/2018 Insurance Payer Benefit Subscriber ID Type Phone Address Plan / Group MEDICARE MEDICARE A xxxxxxxxxx Medicare B [facility] xxxxxxxxx Other Govt FOR LIFE (, [place], [facility], etc.)
--- OUTSIDE RECORDS SUMMARY | 2019-03-27 11:10 | XMS REPORT | Summary of Care ---
Author Author [facility] Organization [facility] Address Unknown Phone Unavailable Encounter FRANKIE Rees(DMITRIY) [id number] Date(s): 07/12/17 - 07/12/17 [facility] [address] [place] [address]- Discharge Disposition: Home or Self Care Attending Physician: Ramin Macias MD Referring Physician: Ramin Macias MD Vital Signs No data available for [...] Substance Reaction Severity Status penicillin Active Medications Omnipaque 300 100 mL, Route: IV, Drug Form: SOLN, ONCE, Start date: 07/12/17 8:13:00 CDT, Stop date: 07/12/17 8:13:00 CDT Notes: (Same as:Omnipaque 300).WASTE: F/P - Black; E - Municipal Trash Bin Start Date: 07/12/17 Stop Date: 07/12/17 Status: Completed Results CHEM PANEL Most recent to 1 oldest [Reference Range]: eGFR 74 mL/min/1.73m2 1 *NA* (07/12/17 7:50 AM) POC Creatinine 0.8 mg/dL [0.5-1.4 mg/dL] (07/12/17 7:50 AM) 1Result Comment: The eGFR is calculated using the [...] from the National Kidney Disease Education Program ( NKDEP) which additionally recommends that when the eGFR is used in patients with extremes of body mass index for purposes of drug dosing, the eGFR should be mul tiplied by the estimated BMI. 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
--- OUTSIDE RECORDS SUMMARY | 2019-03-27 11:11 | XMS REPORT | Summary of Care ---
Author Author [facility] Address Unknown Phone Unavailable Encounter HQ Encntr_alias(FIN) [id number] Date(s): 07/26/15 - 07/27/15 [facility] Discharge Disposition: Home Attending Physician: Denise Fox MD Vital Signs No [...] 03/07/11 1Result Comment: GIVEN LATE PT REQUESTS Procedures No data available for this section Social History No data available for this section Assessment and Plan No data available for this section
--- OUTSIDE RECORDS SUMMARY | 2019-03-27 11:11 | XMS REPORT | Summary of Care ---
Author Author [facility] Organization [facility] Address Unknown Phone Unavailable Encounter HQ Nergita(DMITRIY) [id number] Date(s): 02/09/16 - 02/11/16 [facility] [address] [place] [address]- Discharge Disposition: Home Attending Physician: Carine Nails MD Admitting Physician: Carine Nails MD Vital Signs 1 2 3 Most recent to oldest [Reference Range]: 165.1 cm (02/10/16 1:11 AM) 165.1 cm (02/09/16 6:28 PM) Height 98.4 DegF (02/11/16 4:06 PM) 98.2 DegF (02/11/16 11:53 AM) 98.0 DegF (02/11/16 7:42 AM) Temperature Oral [96.4-99.1 DegF] 133/73 mmHg (02/11/16 4:06 PM) 146/84 mmHg *HI* (02/11/16 11:53 AM) 109/65 mmHg (02/11/16 7:42 AM) Blood Pressure [90-140/60-90 mmHg] 18 BRMIN (02/11/16 4:06 PM) 18 BRMIN (02/11/16 11:53 AM) 16 BRMIN (02/11/16 8:31 AM) Respiratory Rate [14-20 BRMIN] 59 bpm *LOW* (02/11/16 4:06 PM) 61 bpm (02/11/16 11:53 AM) 54 bpm *LOW* (02/11/16 7:42 AM) Peripheral Pulse Rate [60-100 bpm] 66.955 kg (02/10/16 1:11 AM) 63.636 kg (02/09/16 6:28 PM) Weight 24.56 m2 (02/10/16 1:11 AM) 23.35 m2 (02/09/16 6:28 PM) Body Mass Index Problem List Condition Effective Dates Status Health [...] Substance Reaction Severity Status penicillin Active Medications acetaminophen 650 mg, 2 tab, Route: PO, Drug form: TAB, Q4H, Dosing Weight 63.636, kg, PRN Katherine n 1-3/Temp > 100.4 F, Start date: 02/09/16 23:40:00 CDT, Duration: 30 day, Stop date: 03/10/16 23:39:00 CDT Notes: Do not exceed 4 gm/day. (Same as: Tylenol) Start Date: 02/09/16 Stop Date: 02/11/16 Status: Discontinued aspirin 325 mg tablet, enteric coated 325 mg, 1 tab, Route: PO, Drug form: ECTAB, Daily, Dosing Weight 66.955, kg, Sta rt date: 02/10/16 9:00:00 CDT, Duration: 30 day, Stop date: 03/10/16 9:00:00 CDT Notes: (Do Not Crush) Do not crush or chew. Start Date: 02/10/16 Stop Date: 02/11/16 Status: Discontinued aspirin 81 mg tablet, chewable 324 mg, 4 tab, Route: CHEW, Drug form: CHEWTAB, ONCE, Dosing Weight 63.636, kg, Priority: STAT, Start date: 02/09/16 19:12:00 CDT, Stop date: 02/09/16 19:12:00 CDT Notes: Take with food. Start Date: 02/09/16 Stop Date: 02/09/16 Status: Completed Bystolic 5 mg, 2 tab, Route: PO, Drug form: TAB, Daily, Dosing Weight 66.955, kg, Start d ate: 02/10/16 9:00:00 CDT, Duration: 30 day, Stop date: 03/10/16 9:00:00 CDT Notes: Same as: Bystolic Start Date: 02/10/16 Stop Date: 02/10/16 Status: Discontinued CeleBREX 200 mg, 1 cap, Route: PO, Drug form: CAP, Daily, Dosing Weight 66.955, kg, Start date: 02/10/16 9:00:00 CDT, Duration: 30 day, Stop date: 03/10/16 9:00:00 CDT Notes: NSAID. Please check indication. Not for seizure. (Same As: CeleBREX) Start Date: 02/10/16 Stop Date: 02/10/16 Status: Discontinued dicyclomine 20 mg, PO, TID, PRN Pain Score 1-5, 0 Refill(s) Start Date: 02/10/16 Status: Suspended docusate 100 mg, 1 cap, Route: PO, Drug form: CAP, BID, Dosing Weight 63.636, kg, PRN Con stipation, Start date: 02/09/16 23:40:00 CDT, Duration: 30 day, Stop date: 03/10 23:39:00 CDT Notes: (Same as: Colace) (Do Not Crush) Start Date: 02/09/16 Stop Date: 02/11/16 Status: Discontinued fenofibrate 72.5 mg, 0.5 tab, Route: PO, Drug form: TAB, Daily, Dosing Weight 66.955, kg, St art date: 02/10/16 11:30:00 CDT, Duration: 30 day, Stop date: 03/11/16 9:00:00 C DT Notes: (Same as: Tricor) Start Date: 02/10/16 Stop Date: 02/11/16 Status: Discontinued fenofibrate 160 mg oral tablet 1/2 tablet, PO, Daily, 0 Refill(s) Start Date: 02/10/16 Status: Suspended Flonase 0.05 mg/inh nasal spray 1 spray, Route: NASAL, Drug Form: SPRY, Dosing Weight 66.955, kg, BID, Start heide e: 02/10/16 9:00:00 CDT, Duration: 30 day, Stop date: 03/10/16 21:00:00 CDT Notes: (Same as: Flonase) Start Date: 02/10/16 Stop Date: 02/11/16 Status: Discontinued Levsin 0.125 mg, 1 tab, Route: PO, Drug form: TAB, BID, Dosing Weight 66.955, kg, Start date: 02/10/16 9:00:00 CDT, Duration: 30 day, Stop date: 03/10/16 17:00:00 CDT Start Date: 02/10/16 Stop Date: 02/10/16 Status: Discontinued Lipitor 5 mg, PO, Bedtime, 0 Refill(s) Start Date: 02/10/16 Stop Date: 02/10/16 Status: Discontinued Lipitor 5 mg, 0.5 tab, Route: PO, Drug form: TAB, Bedtime, Dosing Weight 66.955, kg, Sta rt date: 02/10/16 21:00:00 CDT, Duration: 30 day, Stop date: 03/10/16 21:00:00 C DT Notes: (Same As: Lipitor) Start Date: 02/10/16 Stop Date: 02/11/16 Status: Discontinued morphine Sulfate 2 mg, 1 mL, Route: IVP, Drug form: INJ, Q4H, Dosing Weight 63.636, kg, PRN Pain Score 7-10, Start date: 02/09/16 23:40:00 CDT, Duration: 30 day, Stop date: 02/25 02/10 23:39:00 CDT Notes: (Same as:MORPhine Sulfate) Start Date: 02/09/16 Stop Date: 02/11/16 Status: Discontinued nitroglycerin 0.4 mg sublingual tablet 0.4 mg, 1 tab, Route: SL, Drug form: TAB, Q5Min, Dosing Weight 66.955, kg, PRN C hest Pain, Start date: 02/10/16 7:41:00 CDT, Duration: 30 day, Stop date: 7:40:00 CDT Notes: (Same as:Nitroquick, Nitrostat)"Do Not Crush" Sublingual tablet Start Date: 02/10/16 Stop Date: 02/11/16 Status: Discontinued ondansetron 4 mg, 2 mL, Route: IVP, Drug form: INJ, Q6H, Dosing Weight 63.636, kg, PRN Nause a & Vomiting, Start date: 02/09/16 23:40:00 CDT, Duration: 30 day, Stop date: 03/10/16 23:39:00 CDT Notes: (Same as: Moises) MEDICATION WASTE Product Size: 4 mgProduct Was miriam: ___ mg Start Date: 02/09/16 Stop Date: 02/11/16 Status: Discontinued Protonix 40 mg, 1 tab, Route: PO, Drug form: ECTAB, Before Dinner, Dosing Weight 66.955, kg, Start date: 02/10/16 16:30:00 CDT, Duration: 30 day, Stop date: 03/10/16 16: 30:00 CDT Notes: Tablet should not be chewed or crushed.(Same as: Protonix) Start Date: 02/10/16 Stop Date: 02/11/16 Status: Discontinued Reglan 5 mg, 1 mL, Route: IVP, Drug form: INJ, ONCE, Dosing Weight 63.636, kg, Priority : STAT, Start date: 02/09/16 21:24:00 CDT, Stop date: 02/09/16 21:24:00 CDT Notes: (Same as: Reglan) Start Date: 02/09/16 Stop Date: 02/09/16 Status: Completed Robaxin 500 mg, 1 tab, Route: PO, Drug form: TAB, Q6H, Dosing Weight 66.955, kg, PRN Spa sm, Start date: 02/10/16 7:41:00 CDT, Duration: 30 day, Stop date: 03/11/16 7:40 :00 CDT Notes: (Same as:Robaxin) Start Date: 02/10/16 Stop Date: 02/11/16 Status: Discontinued Saline Flush 0.9% 10 mL, Route: IVP, Drug Form: INJ, Dosing Weight 63.636, kg, PRN, PRN Line Flush , Start date: 02/09/16 18:33:00 CDT, Duration: 30 day, Stop date: 03/10/16 18:32 :00 CDT Notes: Same as: BD Posiflush Sterile Start Date: 02/09/16 Stop Date: 02/10/16 Status: Discontinued tramadol 50 mg oral tablet 50 mg, 1 tab, Route: PO, Drug form: TAB, TID, Dosing Weight 66.955, kg, PRN Pain Score 4-6, Start date: 02/10/16 7:41:00 CDT, Duration: 30 day, Stop date: 03/11 7:40:00 CDT Notes: Not to exceed 400mg/day. (Same As: Ultram) Start Date: 02/10/16 Stop Date: 02/11/16 Status: Discontinued verapamil 180 mg, PO, Daily, 0 Refill(s) Start Date: 02/10/16 Status: Suspended verapamil 0 Refill(s) Start Date: 02/10/16 Stop Date: 02/10/16 Status: Deleted verapamil 180 mg, 1 tab, Route: PO, Drug form: ERTAB, Daily, Dosing Weight 66.955, kg, Sta rt date: 02/10/16 9:00:00 CDT, Duration: 30 day, Stop date: 03/10/16 9:00:00 CDT Notes: Do not crush or chew.(Same As: Calan SR, Isoptin SR) "Avoid grapefruit a nd grapefruit juice" Start Date: 02/10/16 Stop Date: 02/11/16 Status: Discontinued Zofran 4 mg, Route: IVP, Drug form: INJ, ONCE, Dosing Weight 63.636, kg, Priority: STAT , Start date: 02/09/16 19:54:00 CDT, Stop date: 02/09/16 19:54:00 CDT Start Date: 02/09/16 Stop Date: 02/09/16 Status: Completed Results ELECTROLYTES 1 2 3 Most recent to oldest [Reference Range]: 138 mEq/L (02/10/16 5:51 AM) 129 mEq/L *LOW* (02/09/16 6:42 PM) Sodium Lvl [135-145 mEq/L] 4.0 mEq/L (02/10/16 5:51 AM) 3.4 mEq/L *LOW* (02/09/16 6:42 PM) Potassium Lvl [3.5-5.1 mEq/L] 102 mEq/L (02/10/16 5:51 AM) 93 mEq/L *LOW* (02/09/16 6:42 PM) Chloride Lvl [95-109 mEq/L] 28 mEq/L (02/10/16 5:51 AM) 26 mEq/L (02/09/16 6:42 PM) CO2 [24-32 mEq/L] 12.0 mEq/L (02/10/16 5:51 AM) 13.4 mEq/L (02/09/16 6:42 PM) AGAP [10.0-20.0 mEq/L] CHEM PANEL 1 2 3 Most recent to oldest [Reference Range]: 0.79 mg/dL (02/10/16 5:51 AM) 0.93 mg/dL (02/09/16 6:42 PM) Creatinine Lvl [0.50-1.40 mg/dL] 76 mL/min/1.73m2 1 *NA* (02/10/16 5:51 AM) 62 mL/min/1.73m2 2 *NA* (02/09/16 6:42 PM) eGFR 9 mg/dL (02/10/16 5:51 AM) 13 mg/dL (02/09/16 6:42 PM) BUN [7-22 mg/dL] 14 (02/09/16 6:42 PM) B/C Ratio [6-25] 89 mg/dL (02/10/16 5:51 AM) 136 mg/dL *HI* (02/09/16 6:42 PM) Glucose Lvl [70-99 mg/dL] 7.0 g/dL (02/09/16 6:42 PM) Total Protein [6.4-8.4 g/dL] 4.0 g/dL (02/09/16 6:42 PM) Albumin Lvl [3.5-5.0 g/dL] 3.0 g/dL (02/09/16 6:42 PM) Globulin [2.0-4.0 g/dL] 1.3 (02/09/16 6:42 PM) A/G Ratio [0.7-1.6] 9.0 mg/dL (02/10/16 5:51 AM) 9.0 mg/dL (02/09/16 6:42 PM) Calcium Lvl [8.5-10.5 mg/dL] 23 unit/L (02/09/16 6:42 PM) ALT [0-65 unit/L] 15 unit/L (02/09/16 6:42 PM) AST [0-37 unit/L] 33 unit/L *LOW* (02/09/16 6:42 PM) Alk Phos [39-136 unit/L] 0.6 mg/dL (02/09/16 6:42 PM) Bili Total [0.2-1.3 mg/dL] 1Result Comment: The eGFR is calculated using [...] be mul tiplied by the estimated BMI. 2Result Comment: The eGFR is calculated using the [...] be mul tiplied by the estimated BMI. CARDIAC ENZYMES 1 2 3 Most recent to oldest [Reference Range]: 48 unit/L (02/10/16 11:28 AM) 51 unit/L (02/10/16 5:51 AM) 57 unit/L (02/09/16 11:53 PM) Total CK [12-191 unit/L] 0.6 ng/mL (02/10/16 11:28 AM) 0.6 ng/mL (02/10/16 5:51 AM) 1.2 ng/mL (02/09/16 11:53 PM) CK MB [0.5-3.6 ng/mL] 1.2 (02/10/16 11:28 AM) 1.2 (02/10/16 5:51 AM) 2.1 (02/09/16 11:53 PM) CK MB Index [0.0-2.5] <0.02 ng/mL (02/10/16 11:28 AM) <0.02 ng/mL (02/10/16 5:51 AM) <0.02 ng/mL (02/09/16 11:53 PM) Troponin-I [0.00-0.40 ng/mL] 51 pg/mL (02/09/16 6:42 PM) BNP [<=100 pg/mL] URINE AND STOOL 1 2 3 Most recent to oldest [Reference Range]: Clear (02/09/16 9:36 PM) UA Turbidity [Clear] Ltyellow *NA* (02/09/16 9:36 PM) UA Color 6.0 (02/09/16 9:36 PM) UA pH [5.0-8.0] 1.005 (02/09/16 9:36 PM) UA Spec Grav [<=1.030] Negative mg/dL *NA* (02/09/16 9:36 PM) UA Glucose [Negative mg/dL] Negative (02/09/16 9:36 PM) UA Blood [Negative] Negative mg/dL *NA* (02/09/16 9:36 PM) UA Ketones [Negative mg/dL] Negative mg/dL (02/09/16 9:36 PM) UA Protein [Negative mg/dL] <=1.0 mg/dL *NA* (02/09/16 9:36 PM) UA Urobilinogen [0.1-1.0 mg/dL] Negative *NA* (02/09/16 9:36 PM) UA Bili [Negative] Large *ABN* (02/09/16 9:36 PM) UA Leuk Est [Negative] Negative (02/09/16 9:36 PM) UA Nitrite [Negative] 5 /HPF (02/09/16 9:36 PM) UA WBC [0-5 /HPF] 2 /HPF (02/09/16 9:36 PM) UA RBC [0-2 /HPF] Occasional /HPF *NA* (02/09/16 9:36 PM) UA Bacteria [None Seen /HPF] Occasional /LPF *NA* (02/09/16 9:36 PM) UA Sq Epi [Few /LPF] HEMATOLOGY 1 2 3 Most recent to oldest [Reference Range]: 4.9 K/CMM (02/10/16 5:51 AM) 7.7 K/CMM (02/09/16 6:42 PM) WBC [3.7-10.4 K/CMM] 4.37 M/CMM (02/10/16 5:51 AM) 4.49 M/CMM (02/09/16 6:42 PM) RBC [4.20-5.40 M/CMM] 12.5 g/dL (02/10/16 5:51 AM) 13.1 g/dL (02/09/16 6:42 PM) Hgb [12.0-16.0 g/dL] 37.6 % (02/10/16 5:51 AM) 38.8 % (02/09/16 6:42 PM) Hct [36.0-48.0 %] 86.1 fL (02/10/16 5:51 AM) 86.5 fL (02/09/16 6:42 PM) MCV [80.0-98.0 fL] 28.6 pg (02/10/16 5:51 AM) 29.1 pg (02/09/16 6:42 PM) MCH [27.0-31.0 pg] 33.2 g/dL (02/10/16 5:51 AM) 33.6 g/dL (02/09/16 6:42 PM) MCHC [32.0-36.0 g/dL] 13.8 % (02/10/16 5:51 AM) 13.7 % (02/09/16 6:42 PM) RDW [11.5-14.5 %] 207 K/CMM (02/10/16 5:51 AM) 216 K/CMM (02/09/16 6:42 PM) Platelet [133-450 K/CMM] 8.0 fL (02/10/16 5:51 AM) 8.1 fL (02/09/16 6:42 PM) MPV [7.4-10.4 fL] 65.9 % (02/10/16 5:51 AM) 64.8 % (02/09/16 6:42 PM) Segs [45.0-75.0 %] 23.3 % (02/10/16 5:51 AM) 26.1 % (02/09/16 6:42 PM) Lymphocytes [20.0-40.0 %] 9.5 % (02/10/16 5:51 AM) 7.5 % (02/09/16 6:42 PM) Monocytes [2.0-12.0 %] 0.5 % (02/10/16 5:51 AM) 0.9 % (02/09/16 6:42 PM) Eosinophils [0.0-4.0 %] 0.8 % (02/10/16 5:51 AM) 0.7 % (02/09/16 6:42 PM) Basophils [0.0-1.0 %] 3.2 K/CMM (02/10/16 5:51 AM) 5.0 K/CMM (02/09/16 6:42 PM) Segs-Bands # [1.5-8.1 K/CMM] 1.1 K/CMM (02/10/16 5:51 AM) 2.0 K/CMM (02/09/16 6:42 PM) Lymphocytes # [1.0-5.5 K/CMM] 0.5 K/CMM (02/10/16 5:51 AM) 0.6 K/CMM (02/09/16 6:42 PM) Monocytes # [0.0-0.8 K/CMM] 0.1 K/CMM (02/09/16 6:42 PM) Eosinophils # [0.0-0.5 K/CMM] 0.1 K/CMM (02/09/16 6:42 PM) Basophils # [0.0-0.2 K/CMM] 13.4 seconds (02/09/16 6:42 PM) PT [12.0-14.7 seconds] 0.99 (02/09/16 6:42 PM) INR [0.85-1.17] 26.2 seconds (02/09/16 6:42 PM) PTT [22.9-35.8 seconds] Immunizations Vaccine Date Refusal Reason pneumococcal 23-valent [...]
--- OUTSIDE RECORDS SUMMARY | 2019-03-27 11:11 | XMS REPORT | Summary of Care ---
Author Author [facility] Address Unknown Phone Unavailable Encounter FRANKIE Rees(DMITRIY) [id number] Date(s): 08/16/16 - 09/14/16 [facility] Final: Weakness Final: Unspecified abnormalities of gait and mobility Discharge Disposition: Home or Self Care Attending Physician: Denise Fox MD Vital Signs [...]
--- OUTSIDE RECORDS SUMMARY | 2019-03-27 11:11 | XMS REPORT | Summary of Care ---
Author Author [facility] Address Unknown Phone Unavailable Encounter HQ Encntr_alilouann(FIN) [id number] Date(s): 07/28/15 - 08/26/15 [facility] Discharge Disposition: Home Attending Physician: Denise [...]
--- OUTSIDE RECORDS SUMMARY | 2019-03-27 11:11 | XMS REPORT | Summary of Care ---
Author Author [facility] [place] Address Unknown Phone Unavailable Encounter FRANKIE Rees(DMITRIY) [id number] Date(s): 09/29/16 - 09/29/16 [facility] [place] [address] [address], [address] [place] [id number]- [phone] Discharge Disposition: Home or Self Care Attending [...]
--- OUTSIDE RECORDS SUMMARY | 2019-03-27 11:11 | XMS REPORT | Summary of Care ---
Author Organization Unknown Address Unknown Phone Unavailable Encounter HQ Karyn_micheal(DMITRIY) [id number] Date(s): 03/16/15 - 03/16/15 [facility] [address] [place] [address]- Discharge Disposition: Home Physician Attending: Ramin Macias MD Physician_Referring: Ramin Macias MD Vital Signs No data [...]
--- OUTSIDE RECORDS SUMMARY | 2019-03-27 11:11 | XMS REPORT | Summary of Care ---
Author Author [facility] Address Unknown Phone Unavailable Encounter FRANKIE Rees(DMITRIY) [id number] Date(s): 09/18/16 - 10/17/16 [facility] Discharge Disposition: Home or Self Care Attending [...]
[2019-03-27 14:45] VITALS: BP 141/73
--- NOTE | 2019-03-27 21:31 | Operative Report ---
DATE OF PROCEDURE: 03/27/2019 SURGEON: Yuniel Drummond MD PROCEDURE: Colonoscopy with polypectomy. INDICATIONS FOR COLONOSCOPY: Lower abdominal pain, constipation. MEDICATIONS: The patient was done under MAC, please see anesthesiologist's note. PROCEDURE IN DETAIL: With the patient in left lateral decubitus position, a flexible fiberoptic Olympus colonoscope was inserted into the rectum with ease and advanced all the way to the cecum. A minute polyp was removed per cold biopsy forceps from the cecum. One polyp was snared and one polyp was removed per cold biopsy forceps from the ascending colon. One polyp was removed with the cold biopsy forceps from the transverse colon. Diverticular disease was noted to involve the sigmoid colon. One polyp was snared from the rectum. The scope was then retroflexed into the distal rectum and moderate-sized internal hemorrhoids were noted, none of which was actively bleeding. The scope was then straightened out, it was subsequently withdrawn, patient tolerated the procedure well. IMPRESSION: 1. Cecal polyp removed per cold biopsy forceps. 2. Ascending colon polyps x2, one snared and one removed per cold biopsy forceps. 3. Transverse colon polyp removed per cold biopsy forceps. 4. Diverticulosis. 5. Rectal polyp, snared. 6. Internal hemorrhoids, none actively bleeding. PLAN: Follow up histology. Initiate high-fiber, low-fat diet. Initiate high-fiber supplement. The patient might benefit from a followup colonoscopy in 3 years. Yuniel Drummond MD [facility] /[id number] cc: Cody Drummond MD
== END | disposition home or self-care (01) ==
LOC: OR 10:55
PROVIDERS: ATTEND Internal Medicine Gastroenterology
DX: K59.00 Constipation, unspecified (principal); D12.0 Benign neoplasm of cecum; D12.2 Benign neoplasm of ascending colon; D12.3 Benign neoplasm of transverse colon; K62.1 Rectal polyp; K57.30 Diverticulosis of large intestine without perforation or abscess without bleeding; K64.8 Other hemorrhoids; K21.9 Gastro-esophageal reflux disease without esophagitis; I10 Essential (primary) hypertension; E78.5 Hyperlipidemia, unspecified; Z88.0 Allergy status to penicillin; Z01.810 Encounter for preprocedural cardiovascular examination; Z01.812 Encounter for preprocedural laboratory examination; Z79.82 Long term (current) use of aspirin
CPT/HCPCS: 36415; 45380; 45385; 85025; 88305; 93005; J2001; J2250; J2704; 45378; 45384

== ENCOUNTER → 2019-09-09 | Outpatient (CLI) | payer MEDICARE, OTHER ==
[~2019-09-09] MED LIST changes: -FENTANYL CITRATE/PF 100MCG/2 ML INJ ONE; -LIDOCAINE HCL 2% LOCAL INJ 5 ML SDV VIAL INJ ONE; -MIDAZOLAM HCL 2 MG/2 ML VIAL ONE; -PROPOFOL IV EMULSION 10 MG/ML 50 ML VIAL ONE
--- NOTE | 2019-09-10 17:20 | Diagnostic Imaging Report ---
Exam: Bone mineral density study. History: Osteopenia. Comparison: None Discussion: Evaluation of the left hip and lumbar spine was performed utilizing DEXA Hologic bone densitometer. The study is technically adequate. Left hip total bone mineral density: 0.776gm/cm2, T-score is -1.4, Z-score is 0.4. Left hip femoral neck bone mineral density: 0.780gm/cm2, T-score is -0.6, Z-score is 1.5. Lumbar spine total bone mineral density:1.460gm/cm2, T-score is3.8, Z-score is 6.2. Impression: 1. Osteopenia of the left hip, fracture risk is increased 2. Normal bone mineral density of the lumbar spine, fracture risk is not increased. Least significant change (LSC) for bone mineral density as provided by cook chef is 0.023 g/cm2 for lumbar spine and 0.027 g/cm2 for total hip. 10 -year fracture risk per WHO Fracture Risk Assessment Tool (FRAX) for: Major osteoporotic fracture is 9.0% Hip fracture is 1.2% The above fracture probability is calculated for an untreated patient. Fracture probably may be lower if the patient has received treatment. All treatment decisions require clinical judgment and consideration of individual patient factors, including patient preferences, comorbidities, previous drug use and risk factors not captured in the FRAX model (e.g. frailty, falls, vitamin D deficiency, increased bone turnover, interval significant decline in BMD). The patient's fracture risk is compared to an age-matched control. Medical evaluation for secondary causes of low bone bone mineral density may be appropriate. Correlate clinically for the necessity and timing of the next bone mineral density study. Signed by: Dr. Fredy Liz M.D. on 09/10/2019 5:17 PM
== END ==
LOC: DX 10:39
DX: M89.9 Disorder of bone, unspecified (principal)
CPT/HCPCS: 77080

== ENCOUNTER → 2022-07-13 | Day surgery (SDC) | payer MEDICARE, OTHER ==
[2022-07-09 12:06] LABS: BASOPHILS % 0.6 % (0.0-1.0); EOSINOPHILS % 0.8 % (0.0-6.0); HEMATOCRIT 38.7 % (34.2-44.1); HEMOGLOBIN 12.6 g/dL (12.0-16.0); LYMPHOCYTES # (AUTO) 1.6 (1.0-3.2); LYMPHOCYTES % 33.2 % (18.0-39.1); MEAN CORPUSCULAR HGB CONC 32.6 g/dL (31-35); MEAN CORPUSCULAR VOLUME 89.2 fL (81-99); MONOCYTES # (AUTO) 0.5 (0.2-0.8); MONOCYTES % 9.4 % (4.4-11.3); NEUTROPHILS # (AUTO) 2.7 (2.1-6.9); NEUTROPHILS % 55.8 % (38.7-80.0); PLATELET COUNT 221 x10e3/uL (140-360); RED BLOOD COUNT 4.34 x10e6/uL (3.6-5.1); RED CELL DISTRIBUTION WIDTH 13.4 % (11.7-14.4)
[~2022-07-13] MED LIST changes: +FENOFIBRATE145 MG PO; +FENTANYL CITRATE/PF 100MCG/2 ML INJ ONE; +GLUCAGON FOR INJ 1 MG VIAL ONE; +HYOSCYAMINE SULFATE 0.5 MG/ML INJ ONE; +LIDOCAINE HCL 2% LOCAL INJ 5 ML SDV VIAL INJ ONE; +NIACIN500 M2 PO; -VITAMIN D31000 UNIT PEG; +VITAMIN D31000 UNIT PO; +ZETIA10 MG PO
[2022-07-13 11:50] VITALS: BP 140/84
== END | disposition home or self-care (01) ==
LOC: OR 08:37
PROVIDERS: ATTEND Internal Medicine Gastroenterology
DX: K29.50 Unspecified chronic gastritis without bleeding (principal); D12.2 Benign neoplasm of ascending colon; K31.89 Other diseases of stomach and duodenum; K44.9 Diaphragmatic hernia without obstruction or gangrene; K20.90 Esophagitis, unspecified without bleeding; K59.00 Constipation, unspecified; K57.30 Diverticulosis of large intestine without perforation or abscess without bleeding; K64.8 Other hemorrhoids; E78.00 Pure hypercholesterolemia, unspecified; I10 Essential (primary) hypertension; I44.0 Atrioventricular block, first degree; Z88.0 Allergy status to penicillin; Z01.810 Encounter for preprocedural cardiovascular examination; Z01.812 Encounter for preprocedural laboratory examination; Z79.82 Long term (current) use of aspirin; Z79.899 Other long term (current) drug therapy; Z86.19 Personal history of other infectious and parasitic diseases; Z80.0 Family history of malignant neoplasm of digestive organs
CPT/HCPCS: 36415; 43239; 45380; 45385; 85025; 88305; 88342; 93005; C9113; J1610; J1980; J2001; 45378; 88304; 88312; J3010

== ENCOUNTER → 2024-06-02 | Outpatient (REF) | payer MEDICARE, OTHER ==
[~2024-06-02] MED LIST changes: -FENTANYL CITRATE/PF 100MCG/2 ML INJ ONE; -GLUCAGON FOR INJ 1 MG VIAL ONE; -HYOSCYAMINE SULFATE 0.5 MG/ML INJ ONE; -LIDOCAINE HCL 2% LOCAL INJ 5 ML SDV VIAL INJ ONE
== END ==
LOC: RAD 11:44
PROVIDERS: ATTEND Internal Medicine
DX: M25.561 Pain in right knee (principal); Z91.81 History of falling; Z96.651 Presence of right artificial knee joint